=== PATIENT | male | born 1945 | race Caucasian/White ===

== ENCOUNTER 2021-02-16 18:21 | Inpatient (IN) | payer MEDICARE, OTHER ==
[~2021-02-16] VITALS: Ht 177.8 cm; Wt 77.3 kg
[2021-02-16] MEDS ORDERED: acetaminophen 325mg tablet PO STA (18:44)
[2021-02-16] MEDS ORDERED: normal saline 1000ML IV soln IV ONE (18:45)
[2021-02-16 19:11] LABS: BASOPHILS % (AUTO) 0.2 % (0-1); EOSINOPHILS # (AUTO) 0.1 X10'3 (0-0.9); EOSINOPHILS % (AUTO) 0.3 % (0-6); HEMATOCRIT 46.8 % (42.0-52.0); HEMOGLOBIN 16.1 g/dl (14.0-17.9); LYMPHOCYTES # (AUTO) 0.3 X10'3 (1.1-4.8); LYMPHOCYTES % (AUTO) 1.4 % (21-51); MEAN CORPUSCULAR HEMOGLOBIN 32.8 PG (27.0-31.0); MEAN CORPUSCULAR HGB CONC 34.3 g/dL (33.0-36.5); MEAN CORPUSCULAR VOLUME 95.6 FL (78-98); MEAN PLATELET VOLUME 8.6 FL (7.4-10.4); MONOCYTES # (AUTO) 1.1 X10'3 (0-0.9); MONOCYTES % (AUTO) 5.5 % (2-12); NEUTROPHILS # (AUTO) 18.3 X10'3 (1.8-7.7); NEUTROPHILS % (AUTO) 92.6 % (42-75); PLATELET COUNT 138 X10'3 (140-440); WHITE BLOOD COUNT 19.8 X10'3 (4.5-11.0)
[2021-02-16 19:25] LABS: ALANINE AMINOTRANSFERASE 16 U/L (12-78); ALBUMIN 3.7 G/DL (3.4-5.0); ALBUMIN/GLOBULIN RATIO 1.2 (1.1-1.5); ALKALINE PHOSPHATASE 103 IU/L (46-116); ANION GAP 10 (8-16); ASPARTATE AMINO TRANSFERASE 6 U/L (10-37); BILIRUBIN,TOTAL 2.2 MG/DL (0.1-1.0); BLOOD UREA NITROGEN 21 MG/DL (7-18); BUN/CREATININE RATIO 21.6 (5.4-32.0); CALCIUM 9.1 MG/DL (8.5-10.1); CHLORIDE 106 MMOL/L (99-107); CREATININE 0.97 MG/DL (0.60-1.10); GLUCOSE 213 MG/DL (70-104); MAGNESIUM 1.3 MG/DL (1.5-2.4); POTASSIUM 3.6 MMOL/L (3.5-5.1); SODIUM 140 MMOL/L (135-145); TOTAL CARBON DIOXIDE 23.6 MMOL/L (24-32); TOTAL PROTEIN 6.8 G/DL (6.4-8.2); eGFR 75 ML/MIN
[2021-02-16] MEDS ORDERED: CefTRIAXone 2gm/D5W 50ml BAG 50 ML IV ONE (19:40)
[2021-02-16] MEDS ORDERED: vancomycin/NS 1 GM ADD-VANTAGE 250 ML IV ONE (19:40)
[2021-02-16] MEDS ORDERED: iohexol 300mg/ml 100ml inj. ONE (19:56)
[2021-02-16] MEDS ORDERED: MESSAGE TO NURSING PO ONE (20:35)
[2021-02-16 21:39] LABS: CLARITY,URINE CLEAR (Clear); COLOR,URINE YELLOW (Yellow); GLUCOSE, URINE 250 mg/dl (Neg); KETONES,URINE NEGATIVE (Neg); LEUKOCYTE ESTERASE ,URINE NEGATIVE (Neg); NITRITES, URINE NEGATIVE (Neg); OCCULT BLOOD,URINE SMALL (Neg); PH,URINE 5.5 (4.8-8.0); PROTEIN,URINE TRACE mg/dl (Neg); UROBILINOGEN,URINE 0.2 E.U/dL (0.2-1.0)
[2021-02-16 21:41] LABS: UA COLLECTION TYPE URINAL
[2021-02-16 21:45] LABS: HYALINE CASTS 0-3 /LPF (NEGATIVE)
[2021-02-16 21:46] LABS: BACTERIA,URINE NONE SEEN /HPF (Neg); RBC,URINE 0-2 /HPF (0-2); SQUAMOUS EPITHELIAL CELL,UR FEW /LPF (FEW)
[2021-02-16 21:47] LABS: WBC CLUMPS,URINE FEW /HPF (NEGATIVE)
[2021-02-16] MEDS ORDERED: HYDROcodone/acetaminophen 10/325mg tab PO PRN (22:10)
[2021-02-16] MEDS ORDERED: acetaminophen 325mg tablet PO PRN ×2 (22:10)
[2021-02-16] MEDS ORDERED: magnesium 2GM in 50ml NS 50 ML IV PRN (22:10)
[2021-02-16] MEDS ORDERED: magnesium 4gm in 100ml NS 100 ML IV PRN (22:10)
[2021-02-16] MEDS ORDERED: HYDROmorphone inj. 0.5 MG/0.5 ML DISP.SYRIN IV PRN (22:10)
[2021-02-16] MEDS ORDERED: potassium Cl 20 mEq SR tablet PO PRN ×2 (22:10)
[2021-02-16] MEDS ORDERED: magnesium Cl slow-release 64mg tablet PO PRN (22:10)
[2021-02-16] MEDS ORDERED: morphine 2 MG/ML inj. syringe IV PRN ×2 (22:10)
[2021-02-16] MEDS ORDERED: magnesium hydroxide 30ml (MOM) UD suspension PO PRN (22:10)
[2021-02-16] MEDS ORDERED: diphenhydrAMINE 25mg capsule PO PRN (22:10)
[2021-02-16] MEDS ORDERED: diphenhydrAMINE 50 mg/ml inj IV PRN (22:10)
[2021-02-16] MEDS ORDERED: ondansetron/PF 4mg/2ml inj IV PRN (22:10)
[2021-02-16] MEDS ORDERED: bisacodyl 10mg suppository rectal RC PRN (22:10)
[2021-02-16] MEDS ORDERED: ondansetron 4mg rapidly disintigrating tab PO PRN (22:10)
[2021-02-16] MEDS ORDERED: mag hydrox/Alum hydrox/simeth 30ml oral suspension PO PRN (22:10)
[2021-02-16] MEDS ORDERED: potassium CL 10mEq/100ml bag 100 ML IV PRN (22:10)
--- NOTE | 2021-02-16 22:12 | NUR ---
pt home pharmacy is [facility] in [place], [place]. pt unsure of home medication, pharmacist aware.
[2021-02-16] MEDS: HYDROcodone/acetaminophen 5mg/325mg tablet PO PRN (22:21)
[2021-02-16] MEDS: normal saline 1000ml 1,000 ML IV SCH (22:27)
[2021-02-16] MEDS ORDERED: UNABLE TO OBTAIN (22:27)
[2021-02-16 22:58] LABS: HEMOGLOBIN A1C 7.6 % (4.5-6.2)
[2021-02-16 23:05] LABS: APTT 27 SECONDS (22-32)
[2021-02-16 23:15] LABS: PHOSPHORUS 2.4 MG/DL (2.3-4.5); POTASSIUM 3.7 MMOL/L (3.5-5.1)
[2021-02-17] MEDS: piperacillin/tazo 4.5gm/100ml 100 ML IV SCH ×3 (00:35→15:39)
[2021-02-17] MEDS ORDERED: METF-438 PO (01:19)
[2021-02-17] MEDS ORDERED: OMEP-50 PO (01:19)
[2021-02-17] MEDS ORDERED: ATOR-2 PO (01:19)
[2021-02-17] MEDS ORDERED: AMLO10TA13 PO (01:19)
[2021-02-17] MEDS ORDERED: GLIP10TA11 PO (01:19)
[2021-02-17 01:39] LABS: BASOPHILS % (AUTO) 0.1 % (0-1); EOSINOPHILS % (AUTO) 0.1 % (0-6); HEMATOCRIT 40.8 % (42.0-52.0); HEMOGLOBIN 14.4 g/dl (14.0-17.9); LYMPHOCYTES # (AUTO) 0.6 X10'3 (1.1-4.8); LYMPHOCYTES % (AUTO) 2.5 % (21-51); MEAN CORPUSCULAR HEMOGLOBIN 33.5 PG (27.0-31.0); MEAN CORPUSCULAR HGB CONC 35.2 g/dL (33.0-36.5); MEAN CORPUSCULAR VOLUME 95.1 FL (78-98); MEAN PLATELET VOLUME 8.6 FL (7.4-10.4); MONOCYTES # (AUTO) 2.3 X10'3 (0-0.9); MONOCYTES % (AUTO) 9.4 % (2-12); NEUTROPHILS # (AUTO) 21.4 X10'3 (1.8-7.7); NEUTROPHILS % (AUTO) 87.9 % (42-75); PLATELET COUNT 132 X10'3 (140-440); RED BLOOD COUNT 4.28 X10'6 (4.70-6.10); RED CELL DISTRIBUTION WIDTH 12.3 % (11.5-14.5); WHITE BLOOD COUNT 24.3 X10'3 (4.5-11.0)
[2021-02-17 01:57] LABS: ALANINE AMINOTRANSFERASE 13 U/L (12-78); ALBUMIN 2.9 G/DL (3.4-5.0); ALKALINE PHOSPHATASE 76 IU/L (46-116); ANION GAP 9 (8-16); ASPARTATE AMINO TRANSFERASE 10 U/L (10-37); BILIRUBIN,TOTAL 2.2 MG/DL (0.1-1.0); BLOOD UREA NITROGEN 20 MG/DL (7-18); CALCIUM 8.3 MG/DL (8.5-10.1); CHLORIDE 106 MMOL/L (99-107); CHOL/HDL RATIO 2.5 (0.00-4.99); CHOLESTEROL 96 MG/DL (0-200); GLUCOSE 205 MG/DL (70-104); HDL CHOLESTEROL 39 MG/DL (35-60); LDL CHOLESTEROL 56 MG/DL (50-100); MAGNESIUM 1.3 MG/DL (1.5-2.4); POTASSIUM 4.2 MMOL/L (3.5-5.1); SODIUM 140 MMOL/L (135-145); TOTAL CARBON DIOXIDE 25.5 MMOL/L (24-32); TOTAL PROTEIN 5.8 G/DL (6.4-8.2); TRIGLYCERIDES 75 MG/DL (20-135); eGFR 72 ML/MIN
[2021-02-17 02:28] LABS: PLATELET ESTIMATE DECREASED; TOTAL CELLS COUNTED 100
[2021-02-17] MEDS: HYDROcodone/acetaminophen 5mg/325mg tablet PO PRN ×2 (07:55→15:39)
[2021-02-17] MEDS: docusate sod 100mg capsule PO SCH ×2 (07:58→19:29)
[2021-02-17 08:00] VITALS: BP 107/62
[2021-02-17] MEDS: K and/or MAG REPLACEMENT MC SCH ×2 (08:00→20:00)
[2021-02-17] MEDS: normal saline 1000ml 1,000 ML IV SCH ×2 (08:10→18:10)
[2021-02-17] MEDS ORDERED: dextrose ORAL solution 15 GM/59 ML bottle PO PRN ×2 (09:10)
[2021-02-17] MEDS ORDERED: glucagon, human recombinant 1mg kit SUBCUT PRN (09:10)
[2021-02-17] MEDS ORDERED: dextrose 50%-water 50ml dispensing syringe IV PRN ×2 (09:10)
[2021-02-17] MEDS ORDERED: MESSAGE TO PHARMACY PO ONE (09:10)
[2021-02-17] MEDS: vancomycin/NS 1 GM ADD-VANTAGE 250 ML IV SCH ×2 (09:44→22:10)
[2021-02-17] MEDS: pantoprazole 40MG/NS 100ML BAG 100 ML IV SCH (09:45)
[2021-02-17 11:00] VITALS: BP 110/63
--- NOTE | 2021-02-17 11:18 | NUR ---
Arrival from Emergency Pt. arrived from emergency room. Pt. safe and stable after report from MYRA Serna.
[2021-02-17] MEDS: insulin Lispro (HumaLOG) vial - multi-dose SQ SCH ×2 (12:45→19:31)
[2021-02-17 14:02] LABS: BASOPHILS % (AUTO) 0.1 % (0-1); EOSINOPHILS # (AUTO) 0.1 X10'3 (0-0.9); EOSINOPHILS % (AUTO) 0.6 % (0-6); HEMATOCRIT 39.5 % (42.0-52.0); HEMOGLOBIN 13.7 g/dl (14.0-17.9); LYMPHOCYTES # (AUTO) 0.5 X10'3 (1.1-4.8); LYMPHOCYTES % (AUTO) 3.1 % (21-51); MEAN CORPUSCULAR HEMOGLOBIN 33.2 PG (27.0-31.0); MEAN CORPUSCULAR HGB CONC 34.6 g/dL (33.0-36.5); MEAN CORPUSCULAR VOLUME 96.1 FL (78-98); MEAN PLATELET VOLUME 8.7 FL (7.4-10.4); MONOCYTES # (AUTO) 1.2 X10'3 (0-0.9); MONOCYTES % (AUTO) 7.1 % (2-12); NEUTROPHILS # (AUTO) 14.5 X10'3 (1.8-7.7); NEUTROPHILS % (AUTO) 89.1 % (42-75); PLATELET COUNT 122 X10'3 (140-440); RED BLOOD COUNT 4.11 X10'6 (4.70-6.10); RED CELL DISTRIBUTION WIDTH 12.9 % (11.5-14.5); WHITE BLOOD COUNT 16.2 X10'3 (4.5-11.0)
[2021-02-17 15:00] VITALS: BP 127/67
--- NOTE | 2021-02-17 17:40 | NUR ---
DM Consult: Pt admit DX sepsis, scrotal/R pelvic cellulitis, and hypomagnesemia w/ hx T2DM A1C 7.6% per EMR. Pt advanced to carb controlled diet PO 100% proteins only first two meals partially meeting needs. Pt seen at bedside by RD; pt reports unsure if carbs provided are safe to eat on meals given DM hx. RD educated pt on appropriate carb counts at meals, types of carbs, sources of carbs, and encouraged pt to consume carbs at meals. RD provided verbal DM/high protein ed to pt w/ written DM ed and RD contact information placed in pt chart. LBM 02/16. Will continue to monitor for further nutrition intervention needs. Rec: 1. continue carb controlled diet; encourage PO carb intake to meet minimum nutrient needs 2. monitor for additional protein/kcal needs pending further PO trends 3. bowel care per rx 4. scaled wt this admit; subsequent weekly wts Addendum: 02/17/21 at [address] Amended: Links added.
[2021-02-17 18:00] VITALS: BP 115/61
--- NOTE | 2021-02-17 18:31 | NUR ---
Problems reprioritized. Patient report given to Prudence RN, questions answered & plan of care reviewed with Prudence RN. Pt. safe and stable at time of change of shift.
--- NOTE | 2021-02-17 19:06 | NUR ---
Patient in room PCU 3015. I have received report from SUSY RENTERIA and had the opportunity to ask questions and assume patient care.
[2021-02-17] MEDS: lactobacillus rhamnosus 10,000 MMU CELLS/CAPSULE PO SCH (19:29)
[2021-02-17] MEDS ORDERED: non-formulary drug (Omeprazole 1 CAP) PO SCH (20:00)
[2021-02-17] MEDS: magnesium oxide 400mg tablet PO SCH (21:23)
[2021-02-17 22:00] VITALS: BP 140/73
[2021-02-17] MEDS: temazepam 15mg capsule PO PRN (22:09)
[2021-02-17] MEDS: insulin glargine (Lantus) pen - multi-dose SQ SCH (22:37)
[2021-02-17] MEDS ORDERED: acetaminophen 325mg tablet PO PRN (23:20)
[2021-02-18] MEDS: piperacillin/tazo 4.5gm/100ml 100 ML IV SCH ×3 (00:38→16:00)
[2021-02-18 02:00] VITALS: BP 128/65
[2021-02-18] MEDS: normal saline 1000ml 1,000 ML IV SCH ×2 (04:10→14:39)
[2021-02-18 06:00] VITALS: BP 137/74
--- NOTE | 2021-02-18 06:22 | NUR ---
Problems reprioritized. Patient report given, questions answered & plan of care reviewed with SUSY RENTERIA.
--- NOTE | 2021-02-18 06:23 | NUR ---
Patient in room PCU 3015. I have received report from Rachel RENTERIA and had the opportunity to ask questions and assume patient care.
[2021-02-18] MEDS: K and/or MAG REPLACEMENT MC SCH ×2 (08:00→20:00)
[2021-02-18] MEDS ORDERED: VANCOMYCIN LEVEL IV ONE (08:30)
[2021-02-18 08:45] LABS: BASOPHILS # (AUTO) 0.1 X10'3 (0-0.2); BASOPHILS % (AUTO) 0.4 % (0-1); EOSINOPHILS # (AUTO) 0.2 X10'3 (0-0.9); HEMATOCRIT 41.5 % (42.0-52.0); HEMOGLOBIN 14.3 g/dl (14.0-17.9); LYMPHOCYTES # (AUTO) 0.5 X10'3 (1.1-4.8); LYMPHOCYTES % (AUTO) 3.1 % (21-51); MEAN CORPUSCULAR HEMOGLOBIN 33.1 PG (27.0-31.0); MEAN CORPUSCULAR HGB CONC 34.5 g/dL (33.0-36.5); MEAN CORPUSCULAR VOLUME 95.8 FL (78-98); MEAN PLATELET VOLUME 8.3 FL (7.4-10.4); MONOCYTES # (AUTO) 1.1 X10'3 (0-0.9); MONOCYTES % (AUTO) 7.2 % (2-12); NEUTROPHILS # (AUTO) 13.9 X10'3 (1.8-7.7); NEUTROPHILS % (AUTO) 88.3 % (42-75); PLATELET COUNT 131 X10'3 (140-440); RED BLOOD COUNT 4.33 X10'6 (4.70-6.10); RED CELL DISTRIBUTION WIDTH 12.5 % (11.5-14.5); WHITE BLOOD COUNT 15.7 X10'3 (4.5-11.0)
[2021-02-18 09:03] LABS: ALANINE AMINOTRANSFERASE 15 U/L (12-78); ALBUMIN 2.6 G/DL (3.4-5.0); ALBUMIN/GLOBULIN RATIO 0.7 (1.1-1.5); ALKALINE PHOSPHATASE 82 IU/L (46-116); ANION GAP 7 (8-16); ASPARTATE AMINO TRANSFERASE 5 U/L (10-37); BILIRUBIN,TOTAL 1.9 MG/DL (0.1-1.0); BLOOD UREA NITROGEN 15 MG/DL (7-18); BUN/CREATININE RATIO 16.9 (5.4-32.0); CHLORIDE 107 MMOL/L (99-107); CREATININE 0.89 MG/DL (0.60-1.10); GLUCOSE 141 MG/DL (70-104); MAGNESIUM 1.7 MG/DL (1.5-2.4); POTASSIUM 3.7 MMOL/L (3.5-5.1); SODIUM 140 MMOL/L (135-145); TOTAL PROTEIN 6.2 G/DL (6.4-8.2); VANCOMYCIN,TROUGH 8.3 UG/ML (6.0-14.0); eGFR 83 ML/MIN
[2021-02-18] MEDS: lactobacillus rhamnosus 10,000 MMU CELLS/CAPSULE PO SCH ×2 (09:05→20:12)
[2021-02-18] MEDS: docusate sod 100mg capsule PO SCH ×2 (09:05→20:13)
[2021-02-18] MEDS: atorvastatin 20mg tablet PO SCH (09:05)
[2021-02-18] MEDS: amLODIPine 5mg tablet PO SCH (09:06)
[2021-02-18] MEDS: magnesium oxide 400mg tablet PO SCH (09:06)
[2021-02-18] MEDS: pantoprazole 40MG/NS 100ML BAG 100 ML IV SCH (09:11)
[2021-02-18] MEDS: vancomycin/NS 1 GM ADD-VANTAGE 250 ML IV SCH (09:12)
[2021-02-18 11:00] VITALS: BP 111/62
[2021-02-18] MEDS ORDERED: vancomycin/NS 500MG ADD-VANT 100 ML IV ONE (11:45)
[2021-02-18] MEDS ORDERED: SUMAtriptan 25 MG tablet PO ONE (13:40)
[2021-02-18] MEDS: insulin Lispro (HumaLOG) vial - multi-dose SQ SCH ×2 (14:01→20:10)
[2021-02-18 15:20] VITALS: BP 154/78
[2021-02-18 18:00] VITALS: BP 120/95
--- NOTE | 2021-02-18 18:41 | NUR ---
Problems reprioritized. Patient report given Lashawn, questions answered & plan of care reviewed with Lashawn RENTERIA.
[2021-02-18] MEDS: temazepam 15mg capsule PO PRN (20:12)
[2021-02-18] MEDS: insulin glargine (Lantus) pen - multi-dose SQ SCH (22:02)
[2021-02-19] MEDS: piperacillin/tazo 4.5gm/100ml 100 ML IV SCH ×2 (00:09→07:17)
[2021-02-19] MEDS: normal saline 1000ml 1,000 ML IV SCH (00:18)
[2021-02-19 02:00] VITALS: BP 142/79
[2021-02-19 07:08] LABS: BASOPHILS % (AUTO) 0.2 % (0-1); EOSINOPHILS # (AUTO) 0.2 X10'3 (0-0.9); EOSINOPHILS % (AUTO) 1.8 % (0-6); HEMATOCRIT 42.6 % (42.0-52.0); HEMOGLOBIN 14.7 g/dl (14.0-17.9); LYMPHOCYTES # (AUTO) 0.6 X10'3 (1.1-4.8); LYMPHOCYTES % (AUTO) 4.6 % (21-51); MEAN CORPUSCULAR HGB CONC 34.5 g/dL (33.0-36.5); MEAN CORPUSCULAR VOLUME 95.5 FL (78-98); MEAN PLATELET VOLUME 8.5 FL (7.4-10.4); MONOCYTES # (AUTO) 0.9 X10'3 (0-0.9); MONOCYTES % (AUTO) 6.9 % (2-12); NEUTROPHILS # (AUTO) 10.7 X10'3 (1.8-7.7); NEUTROPHILS % (AUTO) 86.5 % (42-75); PLATELET COUNT 161 X10'3 (140-440); RED BLOOD COUNT 4.46 X10'6 (4.70-6.10); RED CELL DISTRIBUTION WIDTH 12.6 % (11.5-14.5); WHITE BLOOD COUNT 12.4 X10'3 (4.5-11.0)
[2021-02-19] MEDS: pantoprazole 40MG/NS 100ML BAG 100 ML IV SCH (07:18)
[2021-02-19] MEDS: atorvastatin 20mg tablet PO SCH (07:21)
[2021-02-19] MEDS: amLODIPine 5mg tablet PO SCH (07:22)
[2021-02-19] MEDS: magnesium oxide 400mg tablet PO SCH (07:22)
[2021-02-19] MEDS: lactobacillus rhamnosus 10,000 MMU CELLS/CAPSULE PO SCH (07:23)
[2021-02-19] MEDS: docusate sod 100mg capsule PO SCH (07:24)
[2021-02-19 07:29] LABS: ALANINE AMINOTRANSFERASE 7 U/L (12-78); ALBUMIN 2.6 G/DL (3.4-5.0); ALBUMIN/GLOBULIN RATIO 0.6 (1.1-1.5); ALKALINE PHOSPHATASE 96 IU/L (46-116); ANION GAP 9 (8-16); ASPARTATE AMINO TRANSFERASE 8 U/L (10-37); BILIRUBIN,TOTAL 2.3 MG/DL (0.1-1.0); BLOOD UREA NITROGEN 11 MG/DL (7-18); CALCIUM 9.4 MG/DL (8.5-10.1); CHLORIDE 105 MMOL/L (99-107); CREATININE 0.92 MG/DL (0.60-1.10); GLUCOSE 144 MG/DL (70-104); MAGNESIUM 1.9 MG/DL (1.5-2.4); POTASSIUM 3.6 MMOL/L (3.5-5.1); SODIUM 141 MMOL/L (135-145); TOTAL CARBON DIOXIDE 26.6 MMOL/L (24-32); TOTAL PROTEIN 6.8 G/DL (6.4-8.2); eGFR 80 ML/MIN
[2021-02-19] MEDS: K and/or MAG REPLACEMENT MC SCH (08:00)
[2021-02-19 11:00] VITALS: BP 154/82
[2021-02-19] MEDS ORDERED: SULF1TAB49 PO (11:53)
--- NOTE | 2021-02-19 12:25 | NUR ---
Pt. left via friend's vehicle; Pt. IV removed; Per. Dr. Reynoso pt ready for discharge; Pt received discharge instructions with no further questions; Jody U
[2021-02-19] MEDS ORDERED: VANCOMYCIN LEVEL IV ONE (20:30)
== END 2021-02-19 12:25 | disposition home or self-care (01) | DRG 871 ==
LOC: ER 18:22 → ED HOLD 22:13 → PCU 3S 02-17 07:28
PROVIDERS: ADMIT Family Medicine; ATTEND Internal Medicine
PROC: BW211ZZ Computerized Tomography (CT Scan) of Abdomen and Pelvis using Low Osmolar Contrast (ICD-10-PCS; principal; 2021-02-16)
DX: A41.9 Sepsis, unspecified organism (principal); K65.0 Generalized (acute) peritonitis; N49.2 Inflammatory disorders of scrotum; E83.42 Hypomagnesemia; Z20.822 Contact with and (suspected) exposure to COVID-19; Z96.0 Presence of urogenital implants; E11.65 Type 2 diabetes mellitus with hyperglycemia; I25.10 Atherosclerotic heart disease of native coronary artery without angina pectoris; N50.89 Other specified disorders of the male genital organs; Z85.46 Personal history of malignant neoplasm of prostate; Z92.3 Personal history of irradiation; Z95.1 Presence of aortocoronary bypass graft; Z79.899 Other long term (current) drug therapy
CPT/HCPCS: 36415; 71045; 74177; 76881; 80053; 80061; 80202; 81001; 82948; 83036; 83605; 83735; 83880; 84100; 84132; 84145; 84484; 85007; 85025; 85610; 85730; 87040; 87081; 87088; 87635; 93005; 96365; 96367; 99285; C9113; C9803; G0378; J0696; J1815; J2405; J2543; J3370; J7030; Q9967